=== PATIENT | female | born 2000 | race Caucasian/White ===

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

== ENCOUNTER 2021-05-26 16:58 | Emergency (ER) | payer SELFPAY ==
[~2021-05-26] VITALS: Ht 157 cm; Wt 90.7 kg
[~2021-05-26 16:58] MED LIST changes: +CIPR-225 PO; +METF-397; +ONDA8TAB9 PO
[2021-05-26] MEDS ORDERED: ACETAMINOPHEN 500 MG TAB (TYLENOL) PO ONE (17:30)
[2021-05-26] MEDS ORDERED: IBUPROFEN 800 MG (MOTRIN) TAB PO ONE (17:30)
[2021-05-26 17:36] LABS: BASOPHILS % (AUTO) 0 % (0-10); EOSINOPHILS % (AUTO) 0 % (0-10); HEMATOCRIT 41 % (35-52); HEMOGLOBIN 12.6 g/dL (11.5-16.0); LYMPHOCYTES # (AUTO) 1.8 10^3/uL (1.0-4.0); LYMPHOCYTES % (AUTO) 24 % (12-44); MEAN CORPUSCULAR HEMOGLOBIN 25 pg (25-34); MEAN CORPUSCULAR HGB CONC 31 g/dL (32-36); MEAN CORPUSCULAR VOLUME 80 fL (80-99); MEAN PLATELET VOLUME 9.4 fL (9.0-12.2); MONOCYTES % (AUTO) 13 % (0-12); NEUTROPHILS # (AUTO) 4.6 10^3/uL (1.8-7.8); NEUTROPHILS % (AUTO) 62 % (42-75); PLATELET COUNT 454 10^3/uL (130-400); WHITE BLOOD COUNT 7.5 10^3/uL (4.3-11.0)
--- NOTE | 2021-05-26 17:40 | Diagnostic Imaging Report ---
INDICATION: Lower respiratory infection. EXAMINATION: Portable chest at 5:28 PM. Heart size and pulmonary vascularity are normal. Lungs are clear. There is no effusion or pneumothorax. IMPRESSION: Negative chest. Dictated by: Dictated on workstation # [id number]
[2021-05-26 17:46] LABS: ALBUMIN 4.3 GM/DL (3.2-4.5); POTASSIUM 3.8 MMOL/L (3.6-5.0)
[2021-05-26 17:47] LABS: CALCIUM 9.7 MG/DL (8.5-10.1)
[2021-05-26 17:48] LABS: TOTAL PROTEIN 8.4 GM/DL (6.4-8.2)
[2021-05-26 17:50] LABS: BILIRUBIN,TOTAL 0.3 MG/DL (0.1-1.0)
[2021-05-26 17:52] LABS: CREATININE SERUM 0.84 MG/DL (0.60-1.30)
[2021-05-26] MEDS ORDERED: HOLD METFORMIN - RECEIVED CONTRAST 20 ML VIAL IV SCH ×2 (18:30→19:00)
[2021-05-26] MEDS ORDERED: IOHEXOL 350 MG/ML 100 ML (OMNIPAQUE 350) VIAL IV ONE ×2 (18:30→19:00)
[2021-05-26] MEDS ORDERED: NS 100 ML (IVPB) BAG IV ONE ×2 (18:30→19:00)
--- NOTE | 2021-05-26 18:43 | ED General ---
General Chief Complaint: Cough/Cold/Flu Symptoms Stated Complaint: COVID+,FEVER 103,COUGH,CHILLS,SOB Nursing Triage Note: pt presents to ed from home with complaints of cough/cold, fever starting yesterday. pt reports she tested positive for covid today. pt reports she came to ed because her fever got to 103 at home. pt states she has not taken tylenol or motrin today. Source of Information: Patient Exam Limitations: No Limitations History of Present Illness Date Seen by Provider: May 26, 2021 Time Seen by Provider: 18:40 Initial Comments To ER with cough cold started yesterday. She tested positive at [facility] today for Covid. Her fever was up to 103 at home. She has not had Tylenol or Motrin. Timing/Duration: 1-2 Days Severity: Moderate Associated Systoms: Cough, Headaches, Malaise Allergies and Home Medications Allergies Coded Allergies: NKANo Known Allergies (Verified Allergy, Unknown, 05/12/06) Home Medications Ciprofloxacin HCl 500 Mg Tablet, 500 MG PO BID Prescribed by: BENJAMIN JORDAN on 09/22/17 1413 Ondansetron 8 Mg Tab.rapdis, 8 MG PO Q6H PRN for NAUSEA/VOMITING-1ST LINE Prescribed by: BENJAMIN JORDAN on 09/22/17 1257 Patient Home Medication List Home Medication List Reviewed: Yes Review of Systems Review of Systems Constitutional: see HPI, chills, fever, malaise EENTM: see HPI Respiratory: no symptoms reported Cardiovascular: no symptoms reported Genitourinary: no symptoms reported Musculoskeletal: no symptoms reported, muscle pain Skin: no symptoms reported Psychiatric/Neurological: No Symptoms Reported Hematologic/Lymphatic: No Symptoms Reported Immunological/Allergic: no symptoms reported Past Jbibqqa-Oyzxba-Ygclgf Hx Patient Social History Tobacco Use?: No Substance use?: No Alcohol Use?: Yes Alcohol Frequency: Once in a while Pt feels they are or have been: No Immunizations Up To Date Tetanus Booster (TDap): Less than 5yrs PED Vaccines UTD: Yes Seasonal Allergies Seasonal Allergies: No Past Medical History Surgery/Hospitalization HX: pmh: PCOS Surgeries: No Respiratory: No Cardiac: No Neurological: No Reproductive Disorders: No Female Reproductive Disorders: Denies Gastrointestinal: No Musculoskeletal: No Endocrine: No Cancer: No Psychosocial: No Integumentary: No Family Medical History No Pertinent Family Hx Physical Exam Vital Signs Vital Signs - First Documented 05/26/21 17:25 Temp 38.9 Pulse 122 Resp 22 B/P (MAP) 148/85 (106) Pulse Ox 98 Capillary Refill : Less Than 3 Seconds Height, Weight, BMI Height: 5'2.00" Weight: 220lbs. oz. 99.030600py; 36.00 BMI Method:Stated General Appearance: No Apparent Distress, WD/WN, Other (O2 100% room air, tachycardic at 105. ) Eyes: Bilateral Eye Normal Inspection, Bilateral Eye PERRL, Bilateral Eye EOMI HEENT: PERRL/EOMI, TMs Normal Respiratory: No Accessory Muscle Use, No Respiratory Distress Cardiovascular: Normal Peripheral Pulses, Tachycardia Gastrointestinal: Normal Bowel Sounds, Non Tender, Soft Neurologic/Psychiatric: Alert, Oriented x3 Skin: Normal Color, Warm/Dry Progress/Results/Core Measures Suspected Sepsis SIRS Temperature: Pulse: 122 Respiratory Rate: 22 Laboratory Tests 05/26/21 17:17: White Blood Count 7.5 Blood Pressure 148 /85 Mean: 106 Laboratory Tests 05/26/21 17:17: Creatinine 0.84, Platelet Count 454H, Total Bilirubin 0.3 Results/Orders Lab Results Laboratory Tests Test 05/26/21 17:17 Range/Units White Blood Count 7.5 4.3-11.0 10^3/uL Red Blood Count 5.11 3.80-5.11 10^6/uL Hemoglobin 12.6 11.5-16.0 g/dL Hematocrit 41 35-52 % Mean Corpuscular Volume 80 80-99 fL Mean Corpuscular Hemoglobin 25 25-34 pg Mean Corpuscular Hemoglobin Concent 31 L 32-36 g/dL Red Cell Distribution Width 16.1 H 10.0-14.5 % Platelet Count 454 H 130-400 10^3/uL Mean Platelet Volume 9.4 9.0-12.2 fL Immature Granulocyte % (Auto) 0 % Neutrophils (%) (Auto) 62 42-75 % Lymphocytes (%) (Auto) 24 12-44 % Monocytes (%) (Auto) 13 H 0-12 % Eosinophils (%) (Auto) 0 0-10 % Basophils (%) (Auto) 0 0-10 % Neutrophils # (Auto) 4.6 1.8-7.8 10^3/uL Lymphocytes # (Auto) 1.8 1.0-4.0 10^3/uL Monocytes # (Auto) 1.0 0.0-1.0 10^3/uL Eosinophils # (Auto) 0.0 0.0-0.3 10^3/uL Basophils # (Auto) 0.0 0.0-0.1 10^3/uL Immature Granulocyte # (Auto) 0.0 0.0-0.1 10^3/uL D-Dimer 0.58 H 0.00-0.49 UG/ML Sodium Level 139 135-145 MMOL/L Potassium Level 3.8 3.6-5.0 MMOL/L Chloride Level 102 98-107 MMOL/L Carbon Dioxide Level 24 21-32 MMOL/L Anion Gap 13 5-14 MMOL/L Blood Urea Nitrogen 9 7-18 MG/DL Creatinine 0.84 0.60-1.30 MG/DL Estimat Glomerular Filtration Rate 86 BUN/Creatinine Ratio 11 Glucose Level 119 H 70-105 MG/DL Calcium Level 9.7 8.5-10.1 MG/DL Corrected Calcium 9.5 8.5-10.1 MG/DL Total Bilirubin 0.3 0.1-1.0 MG/DL Aspartate Amino Transf (AST/SGOT) 17 5-34 U/L Alanine Aminotransferase (ALT/SGPT) 26 0-55 U/L Alkaline Phosphatase 95 40-136 U/L C-Reactive Protein High Sensitivity 4.64 H 0.00-0.50 MG/DL Total Protein 8.4 H 6.4-8.2 GM/DL Albumin 4.3 3.2-4.5 GM/DL Procalcitonin 0.05 <0.10 NG/ML My Orders Orders - BENJAMIN JORDAN LINK TRAINER OPERATOR Cbc With Automated Diff (05/26/21 17:05) Comprehensive Metabolic Panel (05/26/21 17:05) Hs C Reactive Protein (05/26/21 17:05) Fibrin Degradation Products (05/26/21 17:05) Chest 1 View, Ap/Pa Only (05/26/21 17:05) Ed Iv/Invasive Line Start (05/26/21 17:05) Ibuprofen Tablet (Motrin Tablet) (05/26/21 17:30) Acetaminophen Tablet (Tylenol Tablet) (05/26/21 17:30) Procalcitonin (Pct) (05/26/21 17:24) Ct Angio Chest W (05/26/21 18:19) Iohexol Injection (Omnipaque 350 Mg/Ml 1 (05/26/21 18:30) Received Contrast (Hold Metformin- Contr (05/26/21 18:30) Ns (Ivpb) (Sodium Chloride 0.9% Ivpb Bag (05/26/21 18:30) Iohexol Injection (Omnipaque 350 Mg/Ml 1 (05/26/21 19:00) Received Contrast (Hold Metformin- Contr (05/26/21 19:00) Ns (Ivpb) (Sodium Chloride 0.9% Ivpb Bag (05/26/21 19:00) Medications Given in ED Current Medications Medications Dose Ordered Sig/Serjio Route Start Time Stop Time Status Last Admin Dose Admin Acetaminophen 1,000 mg ONCE ONCE PO 05/26/21 17:30 05/26/21 17:31 DC 05/26/21 17:38 1,000 MG Ibuprofen 800 mg ONCE ONCE PO 05/26/21 17:30 05/26/21 17:31 DC 05/26/21 17:38 800 MG Iohexol 100 ml ONCE ONCE IV 05/26/21 18:30 05/26/21 18:31 DC 05/26/21 18:49 84 ML Sodium Chloride 100 ml ONCE ONCE IV 05/26/21 18:30 05/26/21 18:31 DC 05/26/21 18:49 80 ML Vital Signs/I&O 05/26/21 17:25 Temp 38.9 Pulse 122 Resp 22 B/P (MAP) 148/85 (106) Pulse Ox 98 Capillary Refill : Less Than 3 Seconds Blood Pressure Mean: 106 Departure Communication (Admissions) Family Conversation NAME: CHRYSTAL DUMAS [facility] REC#: [id number] PT STATUS: REG ER : 2000 PHYSICIAN: BENJAMIN JORDAN APRN ADMIT DATE: 05/26/21/ER Draft Date of Exam:05/26/21 CT ANGIO CHEST W PROCEDURE: CT angiography of the chest with contrast. TECHNIQUE: Multiple contiguous axial images were obtained through the chest after uneventful bolus administration of intravenous contrast. 3D reconstructed CTA MIP acquisitions were also performed. Auto Exposure Controls were utilized during the CT exam to meet ALARA standards for radiation dose reduction. INDICATION: Fever and cough with Covid infection. FINDINGS: There is good opacification of the pulmonary arteries without intraluminal filling defect identified. Thoracic aorta is also unremarkable in appearance. There is patchy airspace disease in the medial aspect of the left upper lobe adjacent to the descending thoracic aorta. There is no significant pleural or pericardial fluid. No pathologic adenopathy is identified. IMPRESSION: Focal patchy infiltrate in the medial left upper lobe. This could represent focal pneumonitis or atypical pneumonia. There is no CTA evidence of pulmonary embolism. Dictated on workstation # [id number] Dict: 05/26/211899 Trans: 05/26/211906 PJE [id number] Interpreted by: FIONA PEDROZA MD Electronically signed by: With her the emergency use authorization of Regeneron and the alternatives to use. She would like to proceed with getting it. Discussed with her they would call her Saturday for a time on Saturday most likely. Impression Primary Impression: COVID-19 Disposition: 01 HOME, SELF-CARE Condition: Stable Departure-Patient Inst. Decision time for Depature: 18:42 Referrals: [facility] (PCP/Family) Primary Care Physician Patient Instructions: COVID-19 Overview, REGEN-COV (casirivimab and imdevimab) FDA Fact Sheet Add. Discharge Instructions: Return to ER for any concerns. Tylenol and ibuprofen for fever control and body aches. This will persist for about 10 days. Expect to feel worse before you feel better. All discharge instructions reviewed with patient and/or family. Voiced understanding. BENJAMIN JORDAN LINK TRAINER OPERATOR May 26, 2021 18:43
--- NOTE | 2021-05-26 19:08 | Diagnostic Imaging Report ---
PROCEDURE: CT angiography of the chest with contrast. TECHNIQUE: Multiple contiguous axial images were obtained through the chest after uneventful bolus administration of intravenous contrast. 3D reconstructed CTA MIP acquisitions were also performed. Auto Exposure Controls were utilized during the CT exam to meet ALARA standards for radiation dose reduction. INDICATION: Fever and cough with Covid infection. FINDINGS: There is good opacification of the pulmonary arteries without intraluminal filling defect identified. Thoracic aorta is also unremarkable in appearance. There is patchy airspace disease in the medial aspect of the left upper lobe adjacent to the descending thoracic aorta. There is no significant pleural or pericardial fluid. No pathologic adenopathy is identified. IMPRESSION: Focal patchy infiltrate in the medial left upper lobe. This could represent focal pneumonitis or atypical pneumonia. There is no CTA evidence of pulmonary embolism. Dictated by: Dictated on workstation # [id number]
[2021-05-26 19:31] VITALS: BP 135/80
== END 2021-05-26 19:31 | disposition home or self-care (01) ==
LOC: EDUNIT# 16:58 → ER 17:03
DX: U07.1 COVID-19 (principal)
CPT/HCPCS: 36415; 71045; 71275; 80053; 84145; 85025; 85379; 86141

== ENCOUNTER 2021-05-27 23:44 | Emergency (ER) | payer SELFPAY ==
[~2021-05-27] VITALS: Ht 157.5 cm; Wt 113.4 kg
[2021-05-28 00:10] VITALS: BP 120/64
--- NOTE | 2021-05-28 00:39 | ED Respiratory ---
General Chief Complaint: Respiratory Problems Stated Complaint: COVID POSITIVE, SOB Nursing Triage Note: PT AMBULATES TO ROOM #10 W/CO SOA. PT REPORTS AFTER TAKING A SHOWER ON THE EVENING OF 05/27/21 SHE BEGAN TO EXPERIENCE SOA. PT REPORTS SOA IS MADE WORSE UPON STANDING. PT REPORTS SHE TESTED + FOR COVID-19 ON 05/25/21. PT REPORTS SHE HAS BEEN TAKING TYLENOL AND IBUPROFEN FOR FEVER WITH LAST DOSE OF IBUPROFEN TAKEN AT 2230 (400MG). INITIAL SPO2 97% VIA RA WITH NO RESPIRATORY DISTRESS NOTED. PT TEARFUL DURING TRIAGE. Source: patient Exam Limitations: no limitations History of Present Illness Date Seen by Provider: May 28, 2021 Time Seen by Provider: 00:22 Initial Comments 20-year-old female otherwise healthy but has known Covid positive but began to be symptomatic on 05/25/2021 with a headache with a positive Covid test the next day at an outside facility coming in because she was feeling short of breath. She states she has had continued headaches, cough, and the shortness of breath really started today. Is mild, intermittent, and is better with rest. Otherwis e denies any other acute complaints. Allergies and Home Medications Allergies Coded Allergies: NKANo Known Allergies (Verified Allergy, Unknown, 05/12/06) Home Medications Ciprofloxacin HCl 500 Mg Tablet, 500 MG PO BID Prescribed by: BENJAMIN JORDAN on 09/22/17 1413 Ondansetron 8 Mg Tab.rapdis, 8 MG PO Q6H PRN for NAUSEA/VOMITING-1ST LINE Prescribed by: BENJAMIN JORDAN on 09/22/17 1257 Patient Home Medication List Home Medication List Reviewed: Yes Review of Systems Review of Systems Constitutional: fever EENTM: No blurred vision Respiratory: cough, short of breath Gastrointestinal: No abdominal pain, No diarrhea, No nausea, No vomiting Genitourinary: No dysuria : No LMP: May 28, 2021 Musculoskeletal: No joint pain Skin: No rash Psychiatric/Neurological: Denies Anxiety, Denies Depressed Hematologic/Lymphatic: No Symptoms Reported Immunological/Allergic: no symptoms reported All Other Systems Reviewed Negative Unless Noted: Yes Past Ajgxako-Oedfcp-Jstnqr Hx Patient Social History Tobacco Use?: No Substance use?: No Alcohol Use?: No Pt feels they are or have been: No Immunizations Up To Date Tetanus Booster (TDap): Less than 5yrs PED Vaccines UTD: Yes Seasonal Allergies Seasonal Allergies: No Past Medical History Surgery/Hospitalization HX: pmh: PCOS Surgeries: No Respiratory: No Cardiac: No Neurological: No Reproductive Disorders: No Female Reproductive Disorders: Denies Gastrointestinal: No Musculoskeletal: No Endocrine: No Cancer: No Psychosocial: No Integumentary: No Family Medical History No Pertinent Family Hx Physical Exam Vital Signs - First Documented 05/28/21 00:10 Temp 37.2 Pulse 90 Resp 18 B/P (MAP) 120/64 (82) Pulse Ox 97 O2 Delivery Room Air Capillary Refill : Less Than 3 Seconds Height: 5'2.00" Weight: 220lbs. oz. 99.494867dc; 45.00 BMI Method:Stated General Appearance: WD/WN, no apparent distress HEENT: PERRL/EOMI, normal ENT inspection, pharynx normal Neck: non-tender, full range of motion, supple, normal inspection Respiratory: chest non-tender, lungs clear, normal breath sounds, no respiratory distress, no accessory muscle use Cardiovascular: regular rate, rhythm, no edema, no murmur Gastrointestinal: normal bowel sounds, non tender, soft; No distended, No guarding, No rebound Extremities: normal range of motion, non-tender, normal inspection, no calf tenderness, normal capillary refill Neurologic/Psychiatric: no motor/sensory deficits, alert, normal mood/affect, oriented x 3 Skin: normal color, warm/dry Lymphatic: no adenopathy Progress/Results/Core Measures Suspected Sepsis SIRS Temperature: Pulse: 90 Respiratory Rate: 18 Blood Pressure 120 /64 Mean: 82 Results/Orders Vital Signs/I&O 05/28/21 00:10 Temp 37.2 Pulse 90 Resp 18 B/P (MAP) 120/64 (82) Pulse Ox 97 O2 Delivery Room Air Capillary Refill : Less Than 3 Seconds Blood Pressure Mean: 82 Progress Note : Progress Note 20yoF with above history coming in for SOB. ABCs intact and VSS on presentation. I reviewed her ED visit from 05/26/21 and she had a negative CTA chest for PE with signs of viral pneumonia. Lungs were clear on exam and she was well appearing. I personally ambulated her in the room and during that time her O2 sat stayed above 97%. I discussed she should call tomorrow to schedule Regeneron. I believe she is stable for discharge. She was sent home with strict return precautions. Departure Impression Primary Impression: COVID-19 Disposition: 01 HOME, SELF-CARE Condition: Stable Departure-Patient Inst. Decision time for Depature: 00:40 Referrals: [facility] (PCP/Family) Primary Care Physician Patient Instructions: COVID-19 (DC) Add. Discharge Instructions: You were seen in the ER for being short of breath and having COVID. Your lungs sounded good and your oxygen saturation was good. Please call for the IV therapy on Saturday for COVID. You can buy and oxygen saturation probe on [employer] to see if your levels are below 90%. Please come back to the ER if you have any concerns. All discharge instructions reviewed with patient and/or family. Voiced understanding. WILL RICHARDSON MD May 28, 2021 00:39
== END 2021-05-28 00:50 | disposition home or self-care (01) ==
LOC: EDUNIT# 23:44 → ER 23:47
DX: U07.1 COVID-19 (principal)
CPT/HCPCS: 99282

== ENCOUNTER → 2021-06-01 | Outpatient (CLI) | payer SELFPAY ==
[~2021-06-01] VITALS: Ht 170.2 cm; Wt 113.5 kg
[~2021-06-01] MED LIST changes: +ACETAMINOPHEN 500 MG TAB (TYLENOL) PO ONE; +CASIRIVIMAB/IMDEVIMAB 1,200 MG in NS (IVPB) 250 ML IV ONE; +EPINEPHrine INJECTION 1 MG/ML AMP IM PRN; +diphenhydrAMINE 50 MG/ML INJ (BENADRYL) IV PRN
[2021-06-01 09:25] VITALS: BP 106/74
[2021-06-01 11:37] VITALS: BP 121/54
== END ==
LOC: INFUSION 09:37
PROVIDERS: ATTEND Nurse Practitioner Family
DX: Z23 Encounter for immunization (principal); U07.1 COVID-19